=== PATIENT | male | born 1995 | race Caucasian/White ===

== ENCOUNTER 2016-09-01 23:43 | Emergency (ER) | payer OTHER ==
[~2016-09-01] VITALS: Ht 172.7 cm; Wt 55.3 kg
[2016-09-01 23:46] VITALS: BP 106/85
--- NOTE | 2016-09-02 00:02 | NUR ---
PT TAKEN TO BED 3
[2016-09-02] MEDS ORDERED: LIDOCAINE 1% 500 MG/50 ML VIAL INJ ONE (00:20)
--- NOTE | 2016-09-02 00:30 | NUR ---
21Y/M PATIENT PRESENTS TO ED WITH C/O RT. SHOULDER PAIN X 1 HR . PT STATES FELL AND LANDED ON RT. SIDE , AFTER THAT RT. SHOULDER PAIN, NO HEAD HITTING. DENIES N/V/D; SKIN IS PINK/WARM/DRY; AAOX4 WITH EVEN AND STEADY GAIT; LUNGS CLEAR BL; HR EVEN AND REGULAR; PT DENIES ANY FEVER, CP, SOB, OR COUGH AT THIS TIME; PATIENT STATES PAIN OF 7/10 AT THIS TIME; VSS; PATIENT POSITIONED FOR COMFORT; HOB ELEVATED; BEDRAILS UP X2; BED DOWN. ER MD MADE AWARE OF PT STATUS.
--- NOTE | 2016-09-02 00:31 | NUR ---
Dr. Thompson evaluating patient at bedside.
[2016-09-02] MEDS ORDERED: fentaNYL 0.05 MG/ML VIAL IM ONE (00:35)
--- NOTE | 2016-09-02 01:03 | NUR ---
PT TAKEN TO XRAY
[2016-09-02 02:25] VITALS: BP 110/81
--- NOTE | 2016-09-02 02:26 | NUR ---
Patient discharged with v/s stable. Written and verbal after care instructions given and explained. Patient alert, oriented and verbalized understanding of instructions. Ambulatory with steady gait. All questions addressed prior to discharge. ID band removed. Patient advised to follow up with PMD. Rx of TYLENOL 120/12MG/5ML, MOTRIN 100MG/5ML given. Patient educated on indication of medication including possible reaction and side effects. Opportunity to ask questions provided and answered. RT. ARM SLING APPLIED.
== END 2016-09-02 02:26 | disposition home or self-care (01) ==
LOC: MED 23:43
DX: S42.001A Fracture of unspecified part of right clavicle, initial encounter for closed fracture (principal); W18.39XA Other fall on same level, initial encounter; Y93.72 Activity, wrestling; Y92.89 Other specified places as the place of occurrence of the external cause; Y99.8 Other external cause status
CPT/HCPCS: 71010; 73000; 73030; 96372; 99284; J3010; J2001